=== PATIENT | female | born 1945 | race Caucasian/White ===

== ENCOUNTER → 2016-09-13 | Outpatient (CLI) | payer MEDICARE, BC ==
[~2016-09-13] MED LIST: ASCO10007 PO; ASPI-730 PO; ATOR40TA64 PO; CA C1TAB98 PO CHEW; CHOL200024 PO; EPIN0.3P3 IM; FISH1CAP29 PO; METO50TA5 PO; MULT-933 PO; MV-M1TAB38 PO; OMEP20TA2 PO; RALO60TA9 PO; [UNRECOGNIZED DRUG - CODE] PO
== END ==
LOC: WC.BC 13:07
DX: Z12.31 Encounter for screening mammogram for malignant neoplasm of breast (principal)
CPT/HCPCS: 77063; G0202